=== PATIENT | female | born 1950 | race Caucasian/White ===

== ENCOUNTER 2019-09-14 01:16 | Emergency (ER) | payer MEDICARE ==
[~2019-09-14] VITALS: Ht 165.1 cm; Wt 70.9 kg
--- NOTE | 2019-09-14 01:32 | NUR ---
PT AMBULATORY FROM TRIAGE. STATES 06/14 L SHOULDER PAIN. TOOK 2OOMG OF MOTRIN @1800 S RELIEF. HAS BEEN USING ICE & HEAT S RELIEF. PT DENIES ANY CP OR RAUDEL. PT STATES "I THINK I JUST OVERUSED IT..WAS LIFTING BOXES & RAKING A LOT YESTERDAY." FAMILY AT BS. TBS. CALL LIGHT INREACH.
[2019-09-14] MEDS ORDERED: HYDROcodone/APAP 10/325 MG TABLET ONE (01:47)
[2019-09-14] MEDS ORDERED: HYDROcodone/APAP 10/325 MG TABLET PO ONE (02:00)
[2019-09-14] MEDS ORDERED: LIDOCAINE-MPF 1%, 5ML INFIL ONE (02:30)
[2019-09-14] MEDS ORDERED: TRIAMCINOLONE ACETONIDE 40 MG/ML, 1ML MC ONE (02:30)
[2019-09-14] MEDS ORDERED: KETOROLAC 30 MG/1 ML IM ONE (02:30)
[2019-09-14] MEDS ORDERED: KETOROLAC 30 MG/1 ML ONE (02:41)
[2019-09-14] MEDS ORDERED: LIDOCAINE-MPF 1%, 5ML ONE (02:42)
--- NOTE | 2019-09-14 03:23 | NUR ---
AT BS. MEDS PROVIDED.
[2019-09-14 03:40] VITALS: BP 111/71
--- NOTE | 2019-09-14 03:40 | NUR ---
SLING APPLIED. VSS. AWARE OF PLAN TO DC HOME.
== END 2019-09-14 03:47 ==
LOC: ED 03:45
DX: M25.512 Pain in left shoulder (principal)
CPT/HCPCS: 73030; 96372; 99283; J1885; J3301